=== PATIENT | male | born 1985 | race Caucasian/White ===

== ENCOUNTER 2018-05-28 08:55 | Inpatient (IN) | payer OTHER ==
[~2018-05-28] VITALS: Ht 180.3 cm; Wt 93.0 kg
[2018-05-28] MEDS ORDERED: HYDROMORPHONE 1 MG/1 ML DISP.SYRIN ONE ×2 (09:20→12:13)
[2018-05-28] MEDS ORDERED: ONDANSETRON HCL/PF 4 MG/2 ML VIAL ONE (09:20)
[2018-05-28 09:25] LABS: BASOPHILS % (AUTO) 0.2 % (0.0-2.0); EOSINOPHILS % (AUTO) 0.1 % (0.0-6.0); HEMATOCRIT 51 % (39-51); HEMOGLOBIN 17.7 g/dL (13.5-17.5); LYMPHOCYTES # (AUTO) 1.7 /CMM (0.8-4.8); LYMPHOCYTES % (AUTO) 8.3 % (20.0-44.0); MEAN CORPUSCULAR HGB CONC 35 g/dl (31.0-36.0); MEAN CORPUSCULAR VOLUME 82 fL (80-96); MONOCYTES # (AUTO) 1.7 /CMM (0.1-1.30); MONOCYTES % (AUTO) 8.4 % (2.0-12.0); NEUTROPHILS # (AUTO) 16.7 /CMM (1.8-8.9); PLATELET COUNT (AUTO) 320 /CMM (150-450); RED BLOOD CELL COUNT(AUTO) 6.24 MIL/uL (4.5-6.0); WHITE BLOOD COUNT (AUTO) 20.1 K/uL (4.3-11.0)
[2018-05-28] MEDS ORDERED: IV NS 0.9% 1,000 ML BAG IV ONE (09:30)
[2018-05-28] MEDS ORDERED: ONDANSETRON HCL/PF 4 MG/2 ML VIAL IVP ONE (09:30)
[2018-05-28] MEDS ORDERED: HYDROMORPHONE INJ 2 MG/ML DISP.SYRIN IV ONE (09:30)
--- NOTE | 2018-05-28 09:34 | NUR ---
presented patient to the ER c/o of abdominal pain with nausea. on room air, breathing evenly and unlabored. connected to the monitor and pulse ox. kept comfortable. will continue to monitor accordingly.
[2018-05-28 09:43] LABS: CALCIUM, SERUM 9.6 mg/dL (8.5-10.1); CREATININE 1.7 mg/dL (0.6-1.3); POTASSIUM 3.8 mmol/L (3.5-5.1)
[2018-05-28 09:48] LABS: ALBUMIN 4.4 g/dL (3.4-5.0); BILIRUBIN,DIRECT 0.3 mg/dL (0.0-0.2); BILIRUBIN,TOTAL 2.5 mg/dL (0.2-1.0); TOTAL PROTEIN, SERUM 8.4 g/dL (6.4-8.2)
[2018-05-28] MEDS ORDERED: PIPERACILLIN /TAZOBACTAM 3.375 G in IV D5W 50 ML IV ONE (11:00)
--- NOTE | 2018-05-28 11:37 | NUR ---
urine collected and sent to lab.
[2018-05-28 11:51] LABS: APPEARANCE,URINE Slightly Cloudy (CLEAR); BILIRUBIN,URINE MODERATE (NEGATIVE); BLOOD, URINE Negative Ery/uL (NEGATIVE); COLOR,URINE Dark (YELLOW); KETONES,URINE >=160 (NEGATIVE); LEUKOCYTE ESTERASE ,URINE Negative (NEGATIVE); NITRITE, URINE Negative (NEGATIVE); PH,URINE 6.5 (5.0-8.0); PROTEIN,URINE 30 mg/dl (NEGATIVE); UGLUCOSE Negative (NEGATIVE)
[2018-05-28 12:08] LABS: BACTERIA,URINE None seen /HPF (None Seen); RBC,URINE NONE SEEN /HPF (0-2); SQUAMOUS EPITHELIAL CELL,UR Few /HPF (None Seen); WBC,URINE 0-2 /HPF (0-3)
--- NOTE | 2018-05-28 12:14 | NUR ---
PAGED [facility]
--- NOTE | 2018-05-28 12:15 | NUR ---
CALLED NURSING SUP FOR MED SURG BED FOR THIS PATIENT
[2018-05-28] MEDS ORDERED: HYDROMORPHONE 1 MG/1 ML DISP.SYRIN IV ONE (12:30)
--- NOTE | 2018-05-28 12:50 | NUR ---
CALLED NURSING SUP FOR UPDATE WITH BED, NONE YET
--- NOTE | 2018-05-28 12:55 | NUR ---
received a call from [place] [facility] patient is going to room 207-1 M.
--- NOTE | 2018-05-28 13:00 | NUR ---
called [facility] and spoke to antonella mcdermott given and for catrina.
[2018-05-28] MEDS ORDERED: EMTR1TAB6 PO (13:59)
--- NOTE | 2018-05-28 14:00 | NUR ---
MS RN NOTES-- PER NURSING PSYCHODRAMATIST, PT WILL HAVE SURGERY AT 1530.
[2018-05-28] MEDS ORDERED: IV D5/0.45 NACL 1,000 ML IV PRN (14:27)
[2018-05-28 14:30] VITALS: BP 129/76
[2018-05-28] MEDS ORDERED: Z GUARD REMEDY 2 OZ OINT TP PRN (14:30)
[2018-05-28] MEDS ORDERED: MAGNESIUM HYDROXIDE 30 ML UDC PO PRN (14:30)
[2018-05-28] MEDS ORDERED: MAG HYDROX/AL HYDROX/SIMETH 30 ML UDC PO PRN (14:30)
[2018-05-28] MEDS ORDERED: ACETAMINOPHEN 325 MG TABLET PO PRN (14:30)
[2018-05-28] MEDS ORDERED: ONDANSETRON HCL/PF 4 MG/2 ML VIAL IVP PRN ×2 (14:30→19:00)
--- NOTE | 2018-05-28 14:30 | NUR ---
MS POPCORN ATTENDANT NOTE PT ARRIVED TO MS UNIT IN STABLE CONDITION. PT IS A/O X4, AFEBRILE. RESPIRATIONS ARE EVEN AND UNLABORED, NOT IN ANY RESPIRATORY DISTRESS. PT C/O PAIN 01/26 TO RLQ D/T ACUTE APPENDICITIS. DR. GIMENEZ MADE AWARE WITH ORDERS NOTED AND CARRIED OUT. FAMILY AT BEDSIDE AND WAS VERY ADAMANT ABOUT GIVING PT PAIN MEDICATION. DILAUDID ADMINISTERED FOR PAIN. WILL NOTE EFFECTIVENESS. ABDOMEN NOTED TO BE TENDER TO RIGHT QUADRANTS, SOFT TO LEFT QUADRANTS. DENIES ANY BLADDER DISCOMFORT. PT STATES HE IS AMBULATORY. IV ACCESS TO LAC G18 INTACT, NO INFILTRATION NOTED. DRESSING KEPT CLEAN AND DRY. D5 1/2NS STARTED @125ML/HR. NO SKIN ISSUES NOTED. CONSENTS SIGNED FOR SCHEDULED APPENDECTOMY. DR. GIMENEZ CURRENTLY AT BESIDE. WILL MONITOR THE PT THROUGHOUT SHIFT FOR CONTINUITY OF CARE.
--- NOTE | 2018-05-28 14:40 | NUR ---
transferred patient to [facility] going to room 207 in no apparent distress noted.
[2018-05-28] MEDS ORDERED: HYDROMORPHONE INJ 0.5 MG/0.5 ML SYRINGE IV PRN (15:00)
[2018-05-28] MEDS ORDERED: MIDAZOLAM HCL 2 MG/2ML VIAL ONE (15:09)
[2018-05-28] MEDS ORDERED: LIDOCAINE HCL/PF 1% 30 ML SDV ONE (15:09)
[2018-05-28] MEDS ORDERED: BUPIVACAINE MPF 0.5% W/EPI INJ 30 ML VIAL ONE (15:09)
[2018-05-28] MEDS ORDERED: ANESTHESIA TRAY IN PYXIS 1 EA TRAY MC ONE (15:09)
[2018-05-28] MEDS ORDERED: FENTANYL PF 250MCG/5ML AMPUL ONE (15:10)
[2018-05-28] MEDS ORDERED: FAMOTIDINE/PF INJ 20 MG/2 ML VIAL IV ONE (15:11)
[2018-05-28] MEDS ORDERED: METOCLOPRAMIDE HCL 10 MG/2 ML VIAL ONE (15:11)
[2018-05-28] MEDS ORDERED: ROCURONIUM BROMIDE 50 MG/5 ML ONE (15:11)
--- NOTE | 2018-05-28 15:25 | NUR ---
MS RN NOTES-- PT P/U BY OR STAFF IN STABLE CONDITION VIA TAHIRA.
--- NOTE | 2018-05-28 15:30 | NUR ---
MS RN NOTES-- PER OR NURSE, THEY WILL ADMINISTER ZOSYN DURING SURGERY.
[2018-05-28] MEDS: PIPERACILLIN /TAZOBACTAM 3.375 G in IV D5W 100 ML IV SCH ×2 (16:00→23:21)
[2018-05-28] MEDS ORDERED: CEFAZOLIN 1 GM ONE (16:34)
[2018-05-28] MEDS ORDERED: ALBUTEROL 17GM INHALER ONE (16:55)
--- NOTE | 2018-05-28 18:00 | NUR ---
RN NOTES-- PT CAME BACK FROM SURGERY IN STABLE CONDITION W/ ANSELMO DRAIN. OUTPUT OF 30CC. VITAL SIGNS WNL. 4 ABDOMINAL DRESSINGS NOTED. WILL MONITOR FOR CONTINUITY OF CARE.
[2018-05-28] MEDS: HYDROCODONE/APAP 5/325MG 1 EACH TABLET PO PRN (18:10)
--- NOTE | 2018-05-28 18:20 | NUR ---
MS RN NOTES-- REFAXED ORDERS FROM OR TO PHARMACY.
--- NOTE | 2018-05-28 18:59 | NUR ---
MS RN CLOSING NOTES NEEDS MET AND ANTICIPATED. PT REMAINS A/O X4, AFEBRILE. RESPIRATIONS ARE EVEN AND UNLABORED, NOT IN ANY ACUTE DISTRESS NOTED. ADMINISTERED NORCO 5/325, NOTED TO BE EFFECTIVE. DENIES ANY SOB, N/V. EDUCATED PT ON INCENTIVE SPIROMETER AND ABLE TO PERFORM RETURN DEMONSTRATION. IV SITE TO LAC INTACT, NO INFILTRATION NOTED. DRESSING KEPT CLEAN AND DRY. IV FLUIDS RUNNING AND TOLERATING WELL. SAFETY MEASURES ARE IN PLACE. CALL LIGHT IS LEFT WITHIN REACH. WILL ENDORSE TO NEXT SHIFT FOR CONTINUITY OF CARE.
--- NOTE | 2018-05-28 19:36 | NUR ---
RN MS OPENING NOTES RECEIVED PATIENT IN BED AWAKE. PATIENT IS ALERT AND ORIENTED X4, VERBALLY RESPONSIVE, ABLE TO MAKE NEEDS KNOWN. BREATHING EVEN AND UNLABORED. NO SOB NOTED. CURRENTLY WITH NO COMPLAINTS OF PAIN OR DISCOMFORT. NO FACIAL GRIMACING. IV ON LEFT AC#18 INTACT AND PATENT. NO INFILTRATION NOTED. SKIN DRY AND WARM TO TOUCH. AFEBRILE. ALL OTHER NEEDS ATTENDED TO. SAFETY MEASURES IN PLACE. CALL LIGHT WITHIN REACH. WILL CONTINUE TO MONITOR.
[2018-05-28] MEDS: IV D5/0.45 NACL W/20 MEQ KCL 1L IV PRN ×2 (19:52)
[2018-05-28 20:00] VITALS: BP 126/68
[2018-05-28] MEDS: HYDROMORPHONE INJ 0.5 MG/0.5 ML SYRINGE IV PRN (20:16)
[2018-05-28] MEDS: ZOLPIDEM TARTRATE 5 MG TABLET PO PRN (22:45)
[2018-05-29] MEDS: oxyCODONE/APAP (5/325 MG) 1 UDTAB TABLET PO PRN ×3 (00:30→23:37)
[2018-05-29] MEDS: HYDROMORPHONE INJ 0.5 MG/0.5 ML SYRINGE IV PRN ×2 (04:31→07:12)
[2018-05-29] MEDS: IV D5/0.45 NACL W/20 MEQ KCL 1L IV PRN ×2 (06:52)
--- NOTE | 2018-05-29 07:10 | NUR ---
RN MS CLOSING NOTES PATIENT IN BED AWAKE. NO ACUTE CHANGES THROUGHOUT SHIFT. BREATHING EVEN AND UNLABORED. NO SOB NOTED. CURRENTLY WITH NO COMPLAINTS OF PAIN OR DISCOMFORT. NO FACIAL GRIMACING. IV ON LEFT AC#18 INTACT AND PATENT. NO INFILTRATION NOTED. SKIN DRY AND WARM TO TOUCH. AFEBRILE. ALL OTHER NEEDS ATTENDED TO. SAFETY MEASURES IN PLACE. CALL LIGHT WITHIN REACH. WILL ENDORSE TO ONCOMING NURSE FOR MIKKI.
--- NOTE | 2018-05-29 07:40 | NUR ---
MS RN NOTES 32cc OUTPUT FROM ANSELMO DRAIN. LIGHT RED IN COLOR. SMALL CLOTS NOTED. WILL CONTINUE TO MONITOR
--- NOTE | 2018-05-29 07:40 | NUR ---
MS RN NOTES PATIENT RECEIVED RESTING INSIDE ROOM. AWAKE, ALERT AND ORIENTED, VERBALLY RESPONSIVE AND RESPONDS TO VERBAL AND TACTILE STIMULI. NO CHANGES IN LOC NOTED AT THIS TIME. ANSELMO DRAIN IN PLACE AND EMPTIED. CONTINUE WITH WILL CONTINUE TO MONITOR. BED LOCKED AND IN LOW POSITION. WILL CONTINUE TO MONITOR. BED LOCKED AND IN LOW POSITION. BILATERAL UPPER SIDE RAILS UP AND LOCKED. CALL LIGHT WITHIN EASY REACH
[2018-05-29 08:00] VITALS: BP 126/74
--- NOTE | 2018-05-29 08:10 | NUR ---
MS RN NOTES PATIENT WITH COMPLAIN OF FEELING FULL ON HIS BLADDER BUT IS UNABLE TO INITIATE URINATION. LAST VOIDED APPROXIMATELY AT 0630 PER PATIENT REPORT. BLADDER SCAN DONE WITH 0cc SCANNED. MULTIPLE SCAN DONE TO VERIFY. DR. ADAIR PRESENT AT UNIT AND MADE AWARE AND SPOKE TO PATIENT. WITH ORDER FOR PT EVAL. WILL CONTINUE TO MONITOR.
[2018-05-29 08:11] LABS: BASOPHILS % (AUTO) 0.2 % (0.0-2.0); EOSINOPHILS % (AUTO) 0.1 % (0.0-6.0); HEMATOCRIT 45 % (39-51); HEMOGLOBIN 15.2 g/dL (13.5-17.5); LYMPHOCYTES # (AUTO) 1.1 /CMM (0.8-4.8); MEAN CORPUSCULAR HGB CONC 34 g/dl (31.0-36.0); MEAN CORPUSCULAR VOLUME 84 fL (80-96); MONOCYTES # (AUTO) 0.7 /CMM (0.1-1.30); MONOCYTES % (AUTO) 7.3 % (2.0-12.0); NEUTROPHILS # (AUTO) 8.2 /CMM (1.8-8.9); NEUTROPHILS % (AUTO) 81.4 % (43.0-81.0); PLATELET COUNT (AUTO) 183 /CMM (150-450); RED BLOOD CELL COUNT(AUTO) 5.34 MIL/uL (4.5-6.0); WHITE BLOOD COUNT (AUTO) 10.1 K/uL (4.3-11.0)
[2018-05-29 08:26] LABS: ALBUMIN 3.1 g/dL (3.4-5.0); BILIRUBIN,TOTAL 2.3 mg/dL (0.2-1.0); CALCIUM, SERUM 8.5 mg/dL (8.5-10.1); CREATININE 1.3 mg/dL (0.6-1.3); MAGNESIUM 1.8 mg/dL (1.8-2.4); PHOSPHORUS 2.5 mg/dL (2.5-4.9); TOTAL PROTEIN, SERUM 6.7 g/dL (6.4-8.2)
[2018-05-29] MEDS: PIPERACILLIN /TAZOBACTAM 3.375 G in IV D5W 100 ML IV SCH ×3 (08:29→23:37)
[2018-05-29] MEDS: PANTOPRAZOLE 40 MG VIAL IV SCH (08:29)
--- NOTE | 2018-05-29 09:30 | NUR ---
MS RN NOTES PATIENT URINATED, ABLE TO UTILIZE URINAL. CLEAR YELLOW URINE OUTPUT NOTED. DENIES DISCOMFORT ON BLADDER AREA. WILL CONTINUE TO MONITOR
--- NOTE | 2018-05-29 11:00 | NUR ---
MS RN NOTES PATIENT SEEN BY PT. AMBULATED HALLWAY WITH USE OF FWW. TOLERATED EVALUATION WELL. WILL CONTINUE TO MONITOR
[2018-05-29] MEDS: HYDROMORPHONE 1 MG/1 ML DISP.SYRIN IV PRN ×3 (11:46→19:54)
[2018-05-29 16:00] VITALS: BP 132/68
--- NOTE | 2018-05-29 18:50 | NUR ---
MS RN NOTES PATIENT RESTING INSIDE ROOM. AWAKE, ALERT AND ORIENTED, VERBALLY RESPONSIVE AND RESPONDS TO VERBAL AND TACTILE STIMULI. BREATHING EVEN AND UNLABORED. DENIES ANY PAIN OR DISCOMFORT AT THIS TIME. NO CHANGES IN LOC NOTED. ANSELMO DRAINED WITH 17cc OUTPUT DURING THIS SHIFT, SEROSANGUINEOUS. PATIENT KEPT CLEAN, DRY AND COMFORTABLE. WILL ENDORSE TO INCOMING SHIFT FOR MIKKI. BED LOCKED AND IN LOW POSITION. BILATERAL UPPER SIDE RAILS UP AND LOCKED. CALL LIGHT WITHIN EASY REACH
--- NOTE | 2018-05-29 19:30 | NUR ---
RECEIVED PATIENT IN BED AWAKE, AO X 3, ABLE TO MAKE NEEDS KNOWN. NO ACUTE DISTRESS NOTED. MONITORED FOR PAIN. IV SITE PATENT, INTACT; IVF INFUSING ORDERED. ABDOMINAL DRESSING INTACT. ANSELMO SITE INTACT; MINIMAL DRAINAGE IN ANSELMO BULB. SAFETY REMINDERS GIVEN. ON LOW BED WITH BILATERAL UPPER SIDE RAILS UP. CALL BUSTOS WITHIN EASY REACH. WILL CONTINUE TO MONITOR.
[2018-05-29 20:00] VITALS: BP 122/78
[2018-05-29] MEDS: TRUVADA PO SCH ×2 (20:03→20:07)
[2018-05-30] MEDS: ZOLPIDEM TARTRATE 5 MG TABLET PO PRN (00:17)
[2018-05-30] MEDS: IV D5/0.45 NACL W/20 MEQ KCL 1L IV PRN ×4 (01:48→16:27)
[2018-05-30] MEDS: HYDROCODONE/APAP 5/325MG 1 EACH TABLET PO PRN (03:52)
[2018-05-30] MEDS: HYDROMORPHONE 1 MG/1 ML DISP.SYRIN IV PRN (06:01)
[2018-05-30 06:45] LABS: BASOPHILS % (AUTO) 0.1 % (0.0-2.0); EOSINOPHILS % (AUTO) 0.1 % (0.0-6.0); HEMATOCRIT 45 % (39-51); HEMOGLOBIN 15.4 g/dL (13.5-17.5); LYMPHOCYTES # (AUTO) 0.7 /CMM (0.8-4.8); MEAN CORPUSCULAR HGB CONC 34 g/dl (31.0-36.0); MEAN CORPUSCULAR VOLUME 83 fL (80-96); MONOCYTES # (AUTO) 0.7 /CMM (0.1-1.30); MONOCYTES % (AUTO) 6.6 % (2.0-12.0); NEUTROPHILS # (AUTO) 9.2 /CMM (1.8-8.9); NEUTROPHILS % (AUTO) 86.2 % (43.0-81.0); PLATELET COUNT (AUTO) 223 /CMM (150-450); RED BLOOD CELL COUNT(AUTO) 5.49 MIL/uL (4.5-6.0); WHITE BLOOD COUNT (AUTO) 10.6 K/uL (4.3-11.0)
--- NOTE | 2018-05-30 06:45 | NUR ---
PATIENT ASLEEP, EASILY AROUSABLE. RESPIRATIONS EVEN. NO SIGNS OF PAIN NOTED. DUE MEDS GIVEN WITH NO ASE NOTED. IVF INFUSING ORDERED. NEEDS ATTENDED. ANSELMO DRAIN INTACT WITH 60 ML SEROSANGUINOUS DRAINAGE. SAFETY PRECAUTIONS AND COMFORT MEASURES IN PLACE. WILL GIVE REPORT TO DAY SHIFT FOR CONTINUITY OF CARE.
[2018-05-30 07:09] LABS: CALCIUM, SERUM 9.2 mg/dL (8.5-10.1); CREATININE 1.1 mg/dL (0.6-1.3); PHOSPHORUS 3.1 mg/dL (2.5-4.9); POTASSIUM 3.8 mmol/L (3.5-5.1)
--- NOTE | 2018-05-30 07:21 | NUR ---
MS RN NOTES PATIENT RESTING INSIDE ROOM. SLEEPING, EASILY AROUSABLE THROUGH VERBAL AND TACTILE STIMULI. BREATHING EVEN AND UNLABORED. DENIES ANY PAIN OR DISCOMFORT AT THIS TIME. ANSELMO DRAIN IN PLACE. IVF INFUSING ORDERED. WILL CONTINUE TO MONITOR. BED LOCKED AND IN LOW POSITION. BILATERAL UPPER SIDE RAILS UP AND LOCKED. CALL LIGHT WITHIN EASY REACH
[2018-05-30] MEDS: PIPERACILLIN /TAZOBACTAM 3.375 G in IV D5W 100 ML IV SCH ×2 (07:43→16:27)
[2018-05-30] MEDS: PANTOPRAZOLE 40 MG VIAL IV SCH (08:31)
[2018-05-30] MEDS: TRUVADA PO SCH (08:32)
[2018-05-30] MEDS ORDERED: EMTRICITABINE 200 MG CAPSULE PO SCH (09:00)
[2018-05-30] MEDS ORDERED: TENOFOVIR DISOPROXIL FUMARATE 300 MG TABLET PO SCH (09:00)
[2018-05-30] MEDS ORDERED: HOME MED MISCELLANEOUS PO SCH (09:00)
[2018-05-30 09:54] VITALS: BP 125/75
[2018-05-30] MEDS: METOCLOPRAMIDE HCL 10 MG/2 ML VIAL IV SCH ×2 (12:20→18:07)
[2018-05-30 16:35] VITALS: BP 138/84
--- NOTE | 2018-05-30 18:50 | NUR ---
MS RN NOTES PATIENT RESTING INSIDE ROOM. AWAKE, ALERT AND ORIENTED. VERBALLY RESPONSIVE AND RESPONDS TO VERBAL AND TACTILE STIMULI. BREATHING EVEN AND UNLABORED. NO ACUTE DISTRESS NOTED AT THIS TIME. ANSELMO DRAIN IN PLACE WITH 62cc OUTPUT DURING THIS SHIFT. PATIENT DENIES ANY PAIN OR DISCOMFORT. NO CHANGES IN LOC NOTED AT THIS TIME. WILL ENDORSE TO INCOMING SHIFT FOR MIKKI. BED LOCKED AND IN LOW POSITION. BILATERAL UPPER SIDE RAILS UP AND LOCKED. CALL LIGHT WITHIN EASY REACH
--- NOTE | 2018-05-30 19:05 | NUR ---
RN MS NOTES RECEIVED PATIENT IN BED AWAKE ALERT AND ORIENTED X 3-4 ABLE TO MAKE NEEDS KNOWN RESPIRATIONS EVEN AND UNLABORED WITH EQUAL RISE AND FALL OF CHEST, ASKED IF PATIENT IS IN PAIN PER PATIENT " ITS MANAGEABLE." DOES NOT WANT ANY PAIN MEDICATION AT THIS TIME, PATIENT MADE AWARE IF NEEDED TO NOTIFY ME. PATIENT REMAINS AFEBRILE AT THIS TIME, ORIENTED TO STAFF AND CALL LIGHT AND KEPT WITHIN REACH. IV SITE TO LEFT AC #18G INTACT AND PATENT, NO REDNESS, NO INFILTRATION PRESENT, IVF RUNNING ORDERED, PATIENT REMAINS COMFORTABLE AT THIS TIME, DISCUSSED PLAN OF CARE FOR TONIGHT UNDERSTANDS, WILL CONTINUE TO MONITOR.SAFETY PRECAUTIONS IN PLACE, LOW BED AND LOCKED.
[2018-05-30 20:00] VITALS: BP 128/78
--- NOTE | 2018-05-30 20:15 | NUR ---
RN MS NOTES RECEIVED CALL FROM [facility]. PER PATIENT OKAY TO RELEASE PATIENT INFORMATION. STATES " ANYTHING SHE NEEDS TO KNOW IS OKAY." UPDATED ON PATIENT CONDITION.
[2018-05-30 20:31] VITALS: BP 128/78
[2018-05-31] MEDS: METOCLOPRAMIDE HCL 10 MG/2 ML VIAL IV SCH ×3 (00:21→11:57)
[2018-05-31] MEDS: PIPERACILLIN /TAZOBACTAM 3.375 G in IV D5W 100 ML IV SCH ×2 (00:22→08:35)
[2018-05-31 06:34] LABS: CREATININE 1.3 mg/dL (0.6-1.3); MAGNESIUM 2.1 mg/dL (1.8-2.4); PHOSPHORUS 3.4 mg/dL (2.5-4.9)
[2018-05-31 06:38] LABS: CALCIUM, SERUM 9.5 mg/dL (8.5-10.1)
--- NOTE | 2018-05-31 06:43 | NUR ---
RN MS CLOSING NOTES PATIENT IN BED AWAKE ALERT AND ORIENTED X 3-4 ABLE TO MAKE NEEDS KNOWN RESPIRATIONS EVEN AND UNLABORED WITH EQUAL RISE AND FALL OF CHEST, DENIES ANY PAIN OR DISCOMFORT AT THIS TIME, PATIENT REMAINS AFEBRILE , CALL LIGHT AND KEPT WITHIN REACH. IV SITE TO LEFT AC #18G INTACT AND PATENT,IVF RUNNING ORDERED NO REDNESS, NO INFILTRATION PRESENT, , PATIENT REMAINS COMFORTABLE AT THIS TIME, WILL CONTINUE TO MONITOR AND ENDORSE TO NEXT SHIFT.SAFETY PRECAUTIONS IN PLACE, LOW BED AND LOCKED. PATIENT WAS ABLE TO PASS GAS X 2 DURING SHIFT.
[2018-05-31 06:47] LABS: BASOPHILS % (AUTO) 0.2 % (0.0-2.0); EOSINOPHILS % (AUTO) 1.6 % (0.0-6.0); HEMATOCRIT 46 % (39-51); HEMOGLOBIN 15.5 g/dL (13.5-17.5); LYMPHOCYTES # (AUTO) 1.2 /CMM (0.8-4.8); LYMPHOCYTES % (AUTO) 13.3 % (20.0-44.0); MEAN CORPUSCULAR HGB CONC 34 g/dl (31.0-36.0); MEAN CORPUSCULAR VOLUME 83 fL (80-96); MONOCYTES # (AUTO) 0.6 /CMM (0.1-1.30); MONOCYTES % (AUTO) 6.6 % (2.0-12.0); NEUTROPHILS # (AUTO) 6.8 /CMM (1.8-8.9); NEUTROPHILS % (AUTO) 78.3 % (43.0-81.0); PLATELET COUNT (AUTO) 287 /CMM (150-450); RED BLOOD CELL COUNT(AUTO) 5.51 MIL/uL (4.5-6.0); WHITE BLOOD COUNT (AUTO) 8.6 K/uL (4.3-11.0)
--- NOTE | 2018-05-31 07:30 | NUR ---
received pt. this am alert and oriented x4.iv infusing,vs stable. aftab bulb in place.denies.
[2018-05-31 08:00] VITALS: BP 126/77
[2018-05-31] MEDS: PANTOPRAZOLE 40 MG VIAL IV SCH (08:34)
[2018-05-31] MEDS: TRUVADA PO SCH (08:48)
--- NOTE | 2018-05-31 11:35 | NUR ---
dr. robb,dr. hernandez in,discharge orders written.aftab bulb removed by dr. hernandez.dressing to site,hep lock out,dc instructions given pt. has rx with instructions,verbalized understanding of all instructions.friend here.escorted to lobby accompanied by cotton broker and friend,pt. in w/c.
== END 2018-05-31 12:39 | disposition home or self-care (01) | DRG 853 ==
LOC: ER 08:57 → MEDSG2 13:34 → MED 05-29 12:13
PROVIDERS: ADMIT Student in an Organized Health Care Education/Training Program; ATTEND Internal Medicine
PROC: 0DTJ4ZZ Resection of Appendix, Percutaneous Endoscopic Approach (ICD-10-PCS; principal; 2018-05-28)
DX: A41.9 Sepsis, unspecified organism (principal); K35.32 Acute appendicitis with perforation, localized peritonitis, and gangrene, without abscess; N17.0 Acute kidney failure with tubular necrosis; I96 Gangrene, not elsewhere classified; K76.0 Fatty (change of) liver, not elsewhere classified; E80.6 Other disorders of bilirubin metabolism
CPT/HCPCS: 36415; 80048-TC; 80053-TC; 80061-TC; 80076-TC; 81000-TC; 83690-TC; 83735-TC; 84100-TC; 85025-TC; 85730-TC; 87070-TC; 87075-TC; 87081-TC; 87186-TC; 88304-TC; 94799-TC; 97110-TC; 97116-TC; 97530-TC; C9113; G0378; J0690; J1170; J2250; J2405; J2543; J2704; J2710; J2765; J3010; J3480; J3490; J7030; J7060